=== PATIENT | male | born 1945 | race Caucasian/White ===

== ENCOUNTER 2016-08-02 22:04 | Inpatient (IN) | payer MEDICARE, OTHER ==
[~2016-08-02] VITALS: Ht 172.7 cm; Wt 94.5 kg
[2016-08-02 22:15] VITALS: BP 152/75; PULSE 90; RESP 20; TEMP 98.8; O2SAT 90
--- NOTE | 2016-08-02 22:29 | PD ---
HPI Chief Complaint: fever Time Seen by Provider: 22:20 Travel History International Travel<30 days: No Contact w/Intl Traveler<30days: No Traveled to known affect area: No History of Present Illness HPI This 71-year-old male says he been sick for the past 3 or 4 days. He's been having fever to 101. Feeling very tired and has been sleeping excessively. He has not been coughing. He does have a history of diabetes he feels short of breath at times he does not smoke. He's had some asthma in the past. Has not been any dysuria. PFSH Social History Tobacco Use: No Allergies-Medications (Allergen,Severity, Reaction): Coded Allergies: Augmentin (Verified Allergy, Severe, CHEST PAIN, 08/02/16) Contrast Media (Verified Allergy, Intermediate, WARM SENSATION, 08/02/16) Formaldehyde (Verified Allergy, Intermediate, SKIN RASH, 08/02/16) Lipitor (Verified Allergy, Intermediate, MYALGIA, 08/02/16) Uncoded Allergies: Quaternium (Allergy, Intermediate, RASH, 08/02/16) FORMAL (Allergy, Unknown, 08/02/16) Review of Systems General / Constitutional: Positive: Fever, Chills Eyes: No: Diploplia, Blurred Vision HENT: No: Headaches Cardiovascular: No: Chest Pain or Discomfort Respiratory: Positive: Shortness of Breath, No: Cough Gastrointestinal: Positive: Nausea Genitourinary: No: Urgency, Frequency Musculoskeletal: Positive: Myalgias, Arthralgias Skin: No Rash Neurologic: Positive: Weakness, Dizziness Hematologic/Lymphatic: No: Easy Bruising Physical Exam Narrative GENERAL: Well-developed male SKIN: Warm and dry. HEAD: Atraumatic. Normocephalic. EYES: Pupils equal and round. No scleral icterus. No injection or drainage. ENT: No nasal bleeding or discharge. Mucous membranes pink and moist. NECK: Trachea midline. No JVD. CARDIOVASCULAR: Regular rate and rhythm. No murmur appreciated. RESPIRATORY: No accessory muscle use. There are rales in the right lung field GASTROINTESTINAL: Abdomen soft, non-tender, nondistended. Hepatic and splenic margins not palpable. MUSCULOSKELETAL: No obvious deformities. No clubbing. No cyanosis. No edema. NEUROLOGICAL: Awake and alert. No obvious cranial nerve deficits. Motor grossly within normal limits. Normal speech. PSYCHIATRIC: Appropriate mood and affect; insight and judgment normal. Data Data Last Documented VS Vital Signs Date Time Temp Pulse Resp B/P Pulse Ox O2 Delivery O2 Flow Rate FiO2 08/02/16 23:23 90 20 95 Nasal Cannula 2 08/02/16 22:50 163/77 08/02/16 22:15 98.8 Orders Complete Blood Count With Diff (08/02/16 22:26) Comprehensive Metabolic Panel (08/02/16 22:26) Lactic Acid Sepsis Protocol (08/02/16 22:26) Urinalysis - C+S If Indicated (08/02/16 22:26) Influenzae A/B Antigen (08/02/16 22:26) Blood Culture (08/02/16 22:26) Chest, Single Ap (08/02/16 22:26) Blood Glucose (08/02/16 22:26) Ecg Monitoring (08/02/16 22:26) Iv Access Insert/Monitor (08/02/16 22:26) Oximetry (08/02/16 22:26) Oxygen Administration (08/02/16 22:26) Sodium Chlor 0.9% 1000 Ml Inj (Ns 1000 M (08/02/16 22:45) Sodium Chlor 0.9% 1000 Ml Inj (Ns 1000 M (08/02/16 23:15) Ceftriaxone Inj (Rocephin Inj) (08/02/16 23:15) Azithromycin Inj (Zithromax Inj) (08/02/16 23:15) Admit Order (Ed Use Only) (08/02/16 23:29) Labs Laboratory Tests Test 08/02/16 22:35 White Blood Count 17.9 TH/MM3 Red Blood Count 4.65 MIL/MM3 Hemoglobin 14.0 GM/DL Hematocrit 40.9 % Mean Corpuscular Volume 87.9 FL Mean Corpuscular Hemoglobin 30.2 PG Mean Corpuscular Hemoglobin 34.3 % Concent Red Cell Distribution Width 12.6 % Platelet Count 190 TH/MM3 Mean Platelet Volume 7.9 FL Neutrophils (%) (Auto) 87.6 % Lymphocytes (%) (Auto) 4.9 % Monocytes (%) (Auto) 6.9 % Eosinophils (%) (Auto) 0.1 % Basophils (%) (Auto) 0.5 % Neutrophils # (Auto) 15.7 TH/MM3 Lymphocytes # (Auto) 0.9 TH/MM3 Monocytes # (Auto) 1.2 TH/MM3 Eosinophils # (Auto) 0.0 TH/MM3 Basophils # (Auto) 0.1 TH/MM3 CBC Comment AUTO DIFF Differential Comment AUTO DIFF CONFIRMED Platelet Estimate NORMAL Platelet Morphology Comment NORMAL Red Cell Morphology Comment NORMAL Sodium Level 130 MEQ/L Potassium Level 4.2 MEQ/L Chloride Level 95 MEQ/L Carbon Dioxide Level 25.5 MEQ/L Anion Gap 10 MEQ/L Blood Urea Nitrogen 19 MG/DL Creatinine 1.30 MG/DL Estimat Glomerular Filtration 55 ML/MIN Rate Random Glucose 238 MG/DL Lactic Acid Level 1.5 mmol/L Calcium Level 8.6 MG/DL Total Bilirubin 0.7 MG/DL Aspartate Amino Transf 58 U/L (AST/SGOT) Alanine Aminotransferase 51 U/L (ALT/SGPT) Alkaline Phosphatase 59 U/L Total Protein 7.9 GM/DL Albumin 3.1 GM/DL MDM Medical Decision Making Medical Screen Exam Complete: Yes Emergency Medical Condition: Yes Medical Record Reviewed: Yes Differential Diagnosis Differential includes influenza, viral syndrome, pneumonia Narrative Course There is a dense consolidation in the right midlung probably in the supine area segment of the right lower lobe Diagnosis Primary Impression: Pneumonia Qualified Code: J18.1 - Pneumonia of right upper lobe due to infectious organism Robin Lemus MD Aug 02, 2016 22:29
[2016-08-02] MEDS ORDERED: SODIUM CHLOR 0.9% 1000 ML INJ 1,000 ML IV ONE ×2 (22:45→23:15)
[2016-08-02 22:50] VITALS: BP 163/77; PULSE 90; RESP 20; O2SAT 95; O2SAT 96
[2016-08-02 22:56] LABS: AUTOMATED NEUTROPHIL # 15.7 TH/MM3 (1.8-7.7); BASOPHIL # 0.1 TH/MM3 (0-0.2); BASOPHIL % 0.5 % (0.0-2.0); EOSINOPHIL % 0.1 % (0.0-4.0); HEMATOCRIT 40.9 % (39.0-51.0); LYMPH % 4.9 % (9.0-44.0); LYMPHOCYTE # 0.9 TH/MM3 (1.0-4.8); MEAN CELL VOLUME 87.9 FL (80.0-100.0); MEAN CORPUSCULAR HEMOGLOBIN 30.2 PG (27.0-34.0); MEAN CORPUSCULAR HGB CONC 34.3 % (32.0-36.0); MONO % 6.9 % (0.0-8.0); NEUT % 87.6 % (16.0-70.0); PLATELET COUNT 190 TH/MM3 (150-450); RED BLOOD COUNT 4.65 MIL/MM3 (4.50-5.90); RED CELL DISTRIBUTION WIDTH 12.6 % (11.6-17.2); WHITE BLOOD COUNT 17.9 TH/MM3 (4.0-11.0)
[2016-08-02 22:57] LABS: HEMO FLAGS AUTO DIFF
--- NOTE | 2016-08-02 22:57 | RADHPO ---
EXAM DATE/TIME: 08/02/2016 22:43 [facility] COMPARISON: No previous studies available for comparison. INDICATIONS : Shortness of breath. MEDICAL HISTORY : Hypertension. Hypercholesterolemia. Diabetes mellitus type II. SURGICAL HISTORY : None. ENCOUNTER: Initial ACUITY: 1 day PAIN SCORE: 0/10 LOCATION: Bilateral chest FINDINGS: There is infiltrate in the right midlung, probably primarily in the superior segment of the right low er lobe. The left lung is clear. No pleural effusion or pneumothorax on either side. Heart size upper limits of normal. CONCLUSION: Right midlung pneumonia. Followup to resolution recommended. Leland Chino MD on August 02, 2016 at 22:55 Board Certified Radiologist. This report was verified electronically.
[2016-08-02 23:05] LABS: CHLORIDE 95 MEQ/L (98-107); POTASSIUM 4.2 MEQ/L (3.5-5.1); SODIUM (NA) 130 MEQ/L (136-145)
[2016-08-02 23:08] LABS: ANION GAP 10 MEQ/L (5-15); BICARBONATE 25.5 MEQ/L (21.0-32.0)
[2016-08-02 23:09] LABS: BLOOD UREA NITROGEN 19 MG/DL (7-18)
[2016-08-02 23:11] LABS: ALT (GPT) 51 U/L (12-78)
[2016-08-02 23:12] LABS: AST (GOT) 58 U/L (15-37); GLOMERULAR FILTRATION RATE 55 ML/MIN (>89)
[2016-08-02 23:13] LABS: TOTAL BILIRUBIN ADULT 0.7 MG/DL (0.2-1.0)
[2016-08-02 23:14] LABS: ALKALINE PHOSPHATASE 59 U/L (45-117)
[2016-08-02] MEDS ORDERED: cefTRIAXone INJ 1,000 MG in SODIUM CHLORIDE 0.9% INJ 100 ML IV ONE (23:15)
[2016-08-02] MEDS ORDERED: AZITHROMYCIN INJ 500 MG in SODIUM CHLOR 0.9% 250 ML INJ 250 ML IV ONE (23:15)
[2016-08-02 23:16] LABS: PLATELET ESTIMATE SMEAR NORMAL (NORMAL); PLATELET MORPHOLOGY NORMAL (NORMAL); SCAN/DIFF AUTO DIFF CONFIRMED
[2016-08-02 23:45] VITALS: BP 158/74; PULSE 88; RESP 20; O2SAT 95
[2016-08-02] MEDS ORDERED: ONDANSETRON HCL 4 MG/2 ML VIAL IV PRN (23:45)
[2016-08-02] MEDS ORDERED: RESP: ALBUTEROL 2.5 MG/IPRATROPIUM 0.5 MG NEB (PRN) INH (23:45)
[2016-08-02] MEDS ORDERED: SODIUM CHLORIDE 0.9% FLUSH 5 ML FLUSH IV FLUSH PRN (23:45)
[2016-08-03] VITALS (12 sets, daily range): BP systolic 99–156; BP diastolic 56–84; PULSE 90–102; RESP 16–20; TEMP 98.8–101.3; O2SAT 89–96
[2016-08-03] MEDS ORDERED: SITA50 PO (00:34)
[2016-08-03] MEDS ORDERED: ASPI81CH3 CHEW (00:34)
[2016-08-03] MEDS ORDERED: COZA100T PO (00:34)
[2016-08-03] MEDS ORDERED: HYDR-3288 PO (00:34)
[2016-08-03] MEDS ORDERED: ZETI10TA5 PO (00:34)
[2016-08-03] MEDS ORDERED: PAXI20TA PO (00:34)
[2016-08-03] MEDS ORDERED: MELA10TA (00:34)
[2016-08-03] MEDS ORDERED: ZYRT10TA PO (00:34)
[2016-08-03] MEDS ORDERED: PAXI30TA7 PO (00:34)
[2016-08-03] MEDS ORDERED: ROSU20 PO (00:34)
[2016-08-03] MEDS ORDERED: ALLO100T PO (00:34)
[2016-08-03] MEDS ORDERED: TAMS5CAP PO (00:34)
[2016-08-03] MEDS ORDERED: CARD180T PO (00:34)
[2016-08-03] MEDS ORDERED: PRIL20CA9 PO (00:34)
[2016-08-03] MEDS: ACETAMINOPHEN 325 MG TAB PO PRN ×2 (03:17→08:53)
[2016-08-03 06:17] LABS: AUTOMATED NEUTROPHIL # 11.7 TH/MM3 (1.8-7.7); BASOPHIL % 0.2 % (0.0-2.0); EOSINOPHIL # 0.1 TH/MM3 (0-0.4); EOSINOPHIL % 0.8 % (0.0-4.0); HEMATOCRIT 37.4 % (39.0-51.0); LYMPH % 9.2 % (9.0-44.0); LYMPHOCYTE # 1.3 TH/MM3 (1.0-4.8); MEAN CELL VOLUME 88.1 FL (80.0-100.0); MEAN CORPUSCULAR HEMOGLOBIN 28.7 PG (27.0-34.0); MEAN CORPUSCULAR HGB CONC 32.6 % (32.0-36.0); MONO % 8.8 % (0.0-8.0); PLATELET COUNT 167 TH/MM3 (150-450); RED BLOOD COUNT 4.25 MIL/MM3 (4.50-5.90); RED CELL DISTRIBUTION WIDTH 12.6 % (11.6-17.2); WHITE BLOOD COUNT 14.4 TH/MM3 (4.0-11.0)
[2016-08-03 06:18] LABS: HEMO FLAGS DIFF FINAL
[2016-08-03 06:24] LABS: POTASSIUM 3.7 MEQ/L (3.5-5.1)
[2016-08-03 06:25] LABS: BICARBONATE 25.5 MEQ/L (21.0-32.0)
[2016-08-03] MEDS: AZITHROMYCIN 250 MG TAB PO SCH (08:53)
[2016-08-03] MEDS: SODIUM CHLORIDE 0.9% FLUSH 5 ML FLUSH IV FLUSH SCH ×2 (09:00→22:48)
[2016-08-03] MEDS ORDERED: GLUCAGON 1 MG/ML VIAL OTHER PRN (13:45)
[2016-08-03] MEDS ORDERED: DEXTROSE 50% IN WATER 50 ML VIAL(D50) IV PUSH PRN (13:45)
--- NOTE | 2016-08-03 13:50 | HHI.HP ---
[facility] Non-Staff Admission Diagnosis PNEUMONIA Diagnoses: (1) Sepsis Diagnosis: Principal (2) Fever Diagnosis: Principal (3) Pneumonia (4) Hypertension Diagnosis: Secondary (5) Hyperlipidemia Diagnosis: Secondary (6) Diabetes Diagnosis: Secondary Chief Complaint: Fever, body aches, weakness Travel History International Travel<30 Days: No Contact w/Intl Traveler <30 Da: No Traveled to Known Affected Are: No History of Present Illness 71 year-old male with known history of hypertension, hyperlipidemia, diabetes who presented to hospital because of 3 day history of fever, generalized weakness, myalgias. Patient states that he thought he just had the flu. But when his fever never went away came to the hospital for evaluation. Patient presented to hospital he did have febrile illness. Had clinical signs of sepsis. Workup did indicate right lung pneumonia, because of the finding is recommended by ER physician be admitted for further evaluation and management. Patient denies any cough, congestion, phlegm production, abdominal pain, nausea , vomiting. He states he has had some loose stools. Did have fever and chills with associated weakness and myalgias. Review of Systems Constitutional: COMPLAINS OF: Fever, Chills, DENIES: Diaphoretic episodes, Fatigue, Weight gain, Weight loss, Dizziness, Change in appetite, Night Sweats Eyes: DENIES: Blurred vision, Diplopia, Eye inflammation, Eye pain, Vision loss , Double Vision Ears, nose, mouth, throat: COMPLAINS OF: Toothache, DENIES: Vertigo, Nasal discharge, Throat pain, Ear Pain, Running Nose, Sinus Pain Respiratory: DENIES: Apneas, Cough, Snoring, Wheezing, Hemoptysis, Sputum production, Shortness of breath Cardiovascular: DENIES: Chest pain, Palpitations, Syncope, Dyspnea on Exertion , Lower Extremity Edema, Orthopnea Gastrointestinal: DENIES: Abdominal pain, Black stools, Bloody stools, Constipation, Diarrhea, Nausea, Vomiting, Difficulty Swallowing, Anorexia Neurologic: DENIES: Abnormal gait, Headache, Localized weakness, Paresthesias, Seizures, Speech Problems, Tremor, Poor Balance Psychiatric: DENIES: Anxiety, Confusion, Mood changes, Depression Past Family Social History Past Medical History Hypertension Hyperlipidemia Diabetes Benign prostatic hypertrophy Past Surgical History Right shoulder surgery Left knee arthroscopic surgery Reported Medications Reported Meds & Active Scripts Active Reported Flomax (Tamsulosin HCl) 0.4 Mg Cap 0.4 Mg PO HS Cardizem LA (Diltiazem ER 24 HR) 180 Mg Josette 180 Mg PO DAILY Zetia (Ezetimibe) 10 Mg Tab 10 Mg PO DAILY Prilosec (Omeprazole) 20 Mg Cap 20 Mg PO DAILY Zyrtec Allergy (Cetirizine HCl) 10 Mg Tab 10 Mg PO DAILY Melatonin Cr (Melatonin) 10 Mg Tab Aspirin 81 Low Dose (Aspirin) 81 Mg Chew 81 Mg CHEW DAILY Crestor (Rosuvastatin Calcium) 20 Mg Tab 20 Mg PO DAILY Allopurinol 100 Mg Tab 100 Mg PO DAILY Cozaar (Losartan Potassium) 100 Mg Tab 100 Mg PO DAILY Paxil (Paroxetine HCl) 30 Mg Tab 30 Mg PO DAILY Paxil (Paroxetine HCl) 20 Mg Tab 20 Mg PO DAILY Januvia (Sitagliptin Phosphate) 50 Mg Tab 50 Mg PO DAILY [place] (Hydrocodone-Acetaminophen) 7.5-325 mg Tab 1 Tab PO Q6H PRN Allergies: Coded Allergies: Augmentin (Verified Allergy, Severe, CHEST PAIN, 08/02/16) Contrast Media (Verified Allergy, Intermediate, WARM SENSATION, 08/02/16) Formaldehyde (Verified Allergy, Intermediate, SKIN RASH, 08/02/16) Lipitor (Verified Allergy, Intermediate, MYALGIA, 08/02/16) Uncoded Allergies: Quaternium (Allergy, Intermediate, RASH, 08/02/16) FORMAL (Allergy, Unknown, 08/02/16) Family History Reviewed is significant for father having heart attack at age 40 Social History Patient continues to drink 2 beers daily. Denies any tobacco or illicit drugs Physical Exam Vital Signs Vital Signs Date Time Temp Pulse Resp B/P Pulse Ox O2 Delivery O2 Flow Rate FiO2 08/03/16 08:00 99.8 100 18 147/84 90 08/03/16 08:00 90 08/03/16 07:44 92 Nasal Cannula 2.00 08/03/16 04:00 100.4 98 20 99/56 96 08/03/16 02:01 101.3 96 20 124/74 94 08/03/16 01:53 92 08/03/16 01:30 100.1 90 20 146/71 94 Nasal Cannula 2 08/03/16 00:25 95 Nasal Cannula 2.00 08/03/16 00:15 92 20 156/76 94 Nasal Cannula 2 08/02/16 23:45 88 20 158/74 95 Nasal Cannula 2 08/02/16 23:23 90 20 95 Nasal Cannula 2 08/02/16 22:50 90 20 163/77 96 Nasal Cannula 2 08/02/16 22:50 95 Nasal Cannula 2 08/02/16 22:35 90 Nasal Cannula 2 08/02/16 22:15 98.8 90 20 152/75 90 Physical Exam GENERAL: Well-developed, well-nourished, in no acute distress. alert and orientated HEENT: Head is normocephalic without any lesions or masses noted. Facial features are symmetric. Eyes: Pupils equal round reactive to light. Extraocular muscles are intact. Conjunctivae were clear. Oropharyngeal: Pharynx without any erythema edema. Tongue is midline without deviation. Buccal mucosa is moist without any masses or lesions NECK: Supple without any masses. Trachea midline no deviation. No JVD, no bruits are appreciated CARDIAC: Regular rhythm, regular rate. S1/S2 are heard. No murmurs gallops or rubs. LUNGS: Clear to auscultation bilaterally. No wheeze, rhonchi or rales. No use of accessory muscles on inspiration or expiration. ABDOMEN: Soft, nontender. Nondistended. Bowel sounds heard in all 4 quadrants. No organomegaly or masses. Negative rebound, negative guarding EXTREMITIES: No edema, pulses are equal bilaterally. No cyanosis or clubbing NEUROLOGY: Mood and affect appear appropriate. Cranial nerves II through XII grossly intact. Muscle strength 5/5 in upper and lower extremities bilaterally. Deep tendon reflexes are 2+ in upper and lower extremities bilaterally. Laboratory Laboratory Tests Test 08/02/16 08/03/16 22:35 05:55 White Blood Count 17.9 14.4 Red Blood Count 4.65 4.25 Hemoglobin 14.0 12.2 Hematocrit 40.9 37.4 Mean Corpuscular Volume 87.9 88.1 Mean Corpuscular Hemoglobin 30.2 28.7 Mean Corpuscular Hemoglobin 34.3 32.6 Concent Red Cell Distribution Width 12.6 12.6 Platelet Count 190 167 Mean Platelet Volume 7.9 7.7 Neutrophils (%) (Auto) 87.6 81.0 Lymphocytes (%) (Auto) 4.9 9.2 Monocytes (%) (Auto) 6.9 8.8 Eosinophils (%) (Auto) 0.1 0.8 Basophils (%) (Auto) 0.5 0.2 Neutrophils # (Auto) 15.7 11.7 Lymphocytes # (Auto) 0.9 1.3 Monocytes # (Auto) 1.2 1.3 Eosinophils # (Auto) 0.0 0.1 Basophils # (Auto) 0.1 0.0 CBC Comment AUTO DIFF DIFF FINAL Differential Comment AUTO DIFF CONFIRMED Platelet Estimate NORMAL Platelet Morphology Comment NORMAL Red Cell Morphology Comment NORMAL Sodium Level 130 133 Potassium Level 4.2 3.7 Chloride Level 95 97 Carbon Dioxide Level 25.5 25.5 Anion Gap 10 11 Blood Urea Nitrogen 19 16 Creatinine 1.30 1.20 Estimat Glomerular Filtration 55 60 Rate Random Glucose 238 210 Lactic Acid Level 1.5 Calcium Level 8.6 8.0 Total Bilirubin 0.7 Aspartate Amino Transf 58 (AST/SGOT) Alanine Aminotransferase 51 (ALT/SGPT) Alkaline Phosphatase 59 Total Protein 7.9 Albumin 3.1 Date/Time Procedure Status Source Growth 08/02/16 22:45 Influenza Types A,B Antigen (SEGUN) - Final Complete Nasal Aspirate NEGATIVE FOR FLU A AND B ANTIGEN.... 08/02/16 22:45 Aerobic Blood Culture - Preliminary Resulted Blood Peripheral NO GROWTH IN 1 DAY 08/02/16 22:45 Anaerobic Blood Culture - Preliminary Resulted Blood Peripheral NO GROWTH IN 1 DAY Result Diagram: 08/03/16 0555 08/03/16 0555 Imaging Last Impressions Chest X-Ray 08/02/166 Signed Impressions: Service Date/Time: July 22:43 - CONCLUSION: Right midlung pneumonia. Followup to resolution recommended. Leland Chino MD Septic Shock Reassessment Heart: Regular rate and rhythm Lungs: Clear Skin: Warm, Moist Peripheral Pulses: Bounding Right Radial Bounding Left Radial Capillary Refill: Brisk, <2 seconds Assessment and Plan Assessment and Plan Sepsis Patient met criteria with febrile illness, tachycardia, pneumonia Patient started on empirical antibiotics for community-acquired pneumonia with Rocephin and Zithromax Influenza testing is negative Blood cultures negative for 1 day Obtain sputum culture, Legionella testing, strep pneumonia testing, urinalysis Community-acquired pneumonia Antibiotics as above Duo nebs as needed Start Mucinex Leukocytosis, secondary to infection Monitor CBC Hypertension Continue home medications Hyperlipidemia Continue home medications Diabetes Accu-Cheks with sliding scale insulin DVT prevention Sequential compression devices CODE STATUS is DO NOT RESUSCITATE. The patient states he would not want CPR, intubation and that he has discussed this with his and she is well aware of his wishes. Written by Justin Mahmood PA-C, acting as scribe for Dr. Joya on 08/03/16 at 1400. The documentation accurately reflects the work and decisions performed face-to- face by Dr. Joya on 08/03/16 at 1400. Physician Certification 2 Midnight Certification Type: Admission for Inpatient Services Order for Inpatient Services The services are ordered in accordance with Medicare regulations or non- Medicare payer requirements, as applicable. In the case of services not specified as inpatient-only, they are appropriately provided as inpatient services in accordance with the 2-midnight benchmark. Estimated LOS (days): 2 days is the estimated time the patient will need to remain in the hospital, assuming treatment plan goals are met and no additional complications. Post-Hospital Plan: Not yet determined Problem Qualifiers (1) Sepsis: Qualified Code: A41.9 - Sepsis, due to unspecified organism (2) Fever: Qualified Code: R50.9 - Fever, unspecified fever cause (3) Pneumonia: Qualified Code: J18.1 - Pneumonia of right upper lobe due to infectious organism (4) Hypertension: Qualified Code: I15.9 - Secondary hypertension (5) Hyperlipidemia: Qualified Code: E78.5 - Hyperlipidemia, unspecified hyperlipidemia type (6) Diabetes: Qualified Code: E11.8 - Type 2 diabetes mellitus with complication, without long-term current use of insulin Justin Mahmood Aug 03, 2016 13:50 Татьяна Joya MD Aug 03, 2016 17:13
[2016-08-03] MEDS: guaiFENesin E.R. 600 MG TAB PO SCH ×2 (14:51→22:51)
[2016-08-03] MEDS: NS + KCL 20 MEQ INJ 1,000 ML IV SCH (14:54)
[2016-08-03] MEDS: INSULIN ASPART SUPPLEMENTAL SCALE SQ SCH ×2 (16:00→22:50)
[2016-08-03] MEDS: ACETAMINOPHEN 325 MG TAB PO SCH ×2 (18:11→22:51)
[2016-08-03] MEDS ORDERED: cefTRIAXone INJ 1,000 MG in SODIUM CHLORIDE 0.9% INJ 100 ML IV SCH (21:00)
--- NOTE | 2016-08-03 22:48 | RADHPO ---
EXAM DATE/TIME: 08/03/2016 20:10 [facility] COMPARISON: No previous studies available for comparison. INDICATIONS : Shortness of breath and cough. RADIATION DOSE: 21.63 CTDIvol (mGy) MEDICAL HISTORY : Hypertension. Gastroesophageal reflux disease. Diabetes. SURGICAL HISTORY : None. ENCOUNTER: Initial ACUITY: 3 days PAIN SCALE: 0/10 LOCATION: chest TECHNIQUE: Volumetric scanning of the chest was performed. Using automated exposure control and adjustment of t he mA and/or kV according to patient size, radiation dose was kept as low as reasonably achievable to obtain optimal diagnostic quality images. FINDINGS: There is dense consolidation in the right upper lobe with air bronchograms. There is also some patchy airspace disease in the right lower lobe. Findings are most characteristic of bronchopneumonia or as piration. Left lung clear except for minimal linear scarring inferiorly. A small right-sided pleural effusion p resent. Borderline enlarged mediastinal and right hilar lymph nodes. Moderate to severe coronary reagan ry calcifications. No acute findings in the upper abdomen. Multiple calcified gallstones. CONCLUSION: 1. Airspace consolidation in the right lung especially right upper lobe with air bronchograms most ch aracteristic of pneumonia or aspiration. Borderline to mildly enlarged right hilar and mediastinal ly mph nodes. Small right pleural effusion. 2. Moderate to severe coronary calcifications. 3. Multiple calcified gallstones. Mitchel Atwood MD on August 03, 2016 at 22:44 Board Certified Radiologist. This report was verified electronically.
[2016-08-04 00:16] VITALS: BP 135/74; PULSE 88; RESP 18; TEMP 98.7; O2SAT 96
[2016-08-04] MEDS: INSULIN ASPART SUPPLEMENTAL SCALE SQ SCH ×2 (06:19→11:00)
[2016-08-04] MEDS: ACETAMINOPHEN 325 MG TAB PO SCH ×2 (06:20→12:00)
[2016-08-04] MEDS: NS + KCL 20 MEQ INJ 1,000 ML IV SCH (06:21)
[2016-08-04 07:29] LABS: AUTOMATED NEUTROPHIL # 6.9 TH/MM3 (1.8-7.7); BASOPHIL % 0.2 % (0.0-2.0); EOSINOPHIL % 0.3 % (0.0-4.0); HEMATOCRIT 36.5 % (39.0-51.0); HEMO FLAGS DIFF FINAL; LYMPH % 8.8 % (9.0-44.0); LYMPHOCYTE # 0.7 TH/MM3 (1.0-4.8); MEAN CELL VOLUME 87.6 FL (80.0-100.0); MEAN CORPUSCULAR HEMOGLOBIN 29.1 PG (27.0-34.0); MEAN CORPUSCULAR HGB CONC 33.2 % (32.0-36.0); NEUT % 82.7 % (16.0-70.0); PLATELET COUNT 175 TH/MM3 (150-450); RED BLOOD COUNT 4.17 MIL/MM3 (4.50-5.90); RED CELL DISTRIBUTION WIDTH 12.6 % (11.6-17.2); WHITE BLOOD COUNT 8.3 TH/MM3 (4.0-11.0)
[2016-08-04 07:43] LABS: BICARBONATE 26.1 MEQ/L (21.0-32.0); MAGNESIUM 2.2 MG/DL (1.5-2.5)
[2016-08-04 08:00] VITALS: O2SAT 93
[2016-08-04] MEDS: AZITHROMYCIN 250 MG TAB PO SCH (08:31)
[2016-08-04] MEDS: SODIUM CHLORIDE 0.9% FLUSH 5 ML FLUSH IV FLUSH SCH (09:00)
[2016-08-04 09:17] VITALS: BP 136/77; PULSE 89; RESP 14; TEMP 96.8; O2SAT 93
[2016-08-04] MEDS: guaiFENesin E.R. 600 MG TAB PO SCH (11:17)
--- NOTE | 2016-08-04 12:46 | HHI.PR ---
Subjective Remarks Patient seen and examined today with Dr. Joya. Patient states that he is feeling much improved. He is very eager to go home. He feels that he can handle everything at home at this time. Objective Vitals Vital Signs Date Time Temp Pulse Resp B/P Pulse Ox O2 Delivery O2 Flow Rate FiO2 08/04/16 09:17 96.8 89 14 136/77 93 08/04/16 08:00 93 21 08/04/16 07:20 20 08/04/16 00:16 98.7 88 18 135/74 96 08/03/16 20:35 95 Nasal Cannula 2.00 08/03/16 20:29 98.8 96 16 144/80 95 08/03/16 16:00 99.9 102 18 152/79 92 I/O 08/03/16 08/03/16 08/03/16 08/04/16 08/04/16 08/04/16 07:00 15:00 23:00 07:00 15:00 23:00 Intake Total 1590 ml 383 ml 612 ml Balance 1590 ml 383 ml 612 ml Intake Oral 240 ml IV Total 1350 ml 383 ml 612 ml # Voids 1 2 Result Diagram: 08/04/16 0710 08/04/16 0710 Objective Remarks GENERAL: Well-developed, well-nourished, in no acute distress. alert and orientated HEENT: Head is normocephalic without any lesions or masses noted. Facial features are symmetric. Eyes: Extraocular muscles are intact. Conjunctivae were clear. NECK: Supple without any masses. Trachea midline no deviation. No JVD, CARDIAC: Regular rhythm, regular rate. S1/S2 are heard. No murmurs gallops or rubs. LUNGS: Clear to auscultation bilaterally. No wheeze, rhonchi or rales. No use of accessory muscles on inspiration or expiration. ABDOMEN: Soft, nontender. Nondistended. Bowel sounds heard in all 4 quadrants. No organomegaly or masses. Negative rebound, negative guarding EXTREMITIES: No edema, pulses are equal bilaterally. No cyanosis or clubbing NEUROLOGY: Mood and affect appear appropriate. Cranial nerves II through XII grossly intact. Moving all extremities, speech is clear Urinary Catheter: No Vascular Central Line Catheter: No A/P Assessment and Plan Sepsis, resolved Patient met criteria on admission with febrile illness, tachycardia, pneumonia , now afebrile Patient started on empirical antibiotics for community-acquired pneumonia with Rocephin and Zithromax Influenza testing is negative Blood cultures negative for 2 day Legionella and strep pneumonia antigens are negative Awaiting sputum culture Community-acquired pneumonia Antibiotics as above Duo nebs as needed Continue Mucinex Leukocytosis, secondary to infection, resolved Monitor CBC Hypertension Continue home medications Hyperlipidemia Continue home medications Diabetes Accu-Cheks with sliding scale insulin DVT prevention Sequential compression devices CODE STATUS is DO NOT RESUSCITATE. The patient states he would not want CPR, intubation and that he has discussed this with his and she is well aware of his wishes. Written by Justin Mahmood PA-C, acting as scribe for Dr. Joya on 08/04/16 at 1250. The documentation accurately reflects the work and decisions performed face-to- face by Dr. Joya on 08/04/16 at 1250. Discharge Planning Discharge home in stable condition Activity: Ad mackenzie. Diet: Healthy heart diet Medications per medication reconciliation Follow-up primary medical doctor in one week Justin Mahmood Aug 04, 2016 12:46
[2016-08-04] MEDS ORDERED: LEVA750T PO (12:49)
--- NOTE | 2016-08-04 12:50 | HHI.DCPOC ---
Discharge Care Plan Diagnosis: (1) Sepsis (2) Pneumonia (3) Fever Goals to Promote Your Health * To prevent worsening of your condition and complications * To maintain your health at the optimal level Directions to Meet Your Goals Take your medications as prescribed Follow your dietary instruction Follow activity as directed Keep your appointments as scheduled Take your immunizations and boosters as scheduled If your symptoms worsen call your PCP, if no PCP go to Urgent Care Center or Emergency Room Smoking is Dangerous to Your Health. Avoid second hand smoke Call the 24-hour hour crisis hotline for domestic abuse at Justin Mahmood Aug 04, 2016 12:49
== END 2016-08-04 13:50 | disposition home or self-care (01) | DRG 871 ==
LOC: PHED 22:04 → PHEDA 23:30 → PH3B 08-03 01:41
PROVIDERS: ADMIT Family Medicine; ATTEND Family Medicine
DX: A41.9 Sepsis, unspecified organism (principal); J18.9 Pneumonia, unspecified organism; I10 Essential (primary) hypertension; E78.5 Hyperlipidemia, unspecified; E11.9 Type 2 diabetes mellitus without complications; N40.0 Benign prostatic hyperplasia without lower urinary tract symptoms; Z79.84 Long term (current) use of oral hypoglycemic drugs; Z66 Do not resuscitate; Z88.8 Allergy status to other drugs, medicaments and biological substances; Z88.1 Allergy status to other antibiotic agents; Z91.041 Radiographic dye allergy status
CPT/HCPCS: 71010; 71250; 80048; 80053; 82948; 83605; 83735; 85025; 87040; 87449; 87804; 94150; 96361; 96374; J0456; J0696; J1815; J3480; J7030; J7050